=== PATIENT | male | born 1980 | race Caucasian/White ===

== ENCOUNTER 2016-07-22 12:42 | Emergency (ER) | payer BC, OTHER ==
[2016-07-22] MEDS ORDERED: Ondansetron INJ* 2 MG/ML VIAL IV ONE (13:18)
[2016-07-22] MEDS ORDERED: Clindamycin 600 MG IVPREMIX(* 600 MG/50 ML SDV IV ONE (13:21)
--- NOTE | 2016-07-22 13:44 | RAD ---
INDICATION: Cough, burning, history of vomiting. COMPARISON: There are no prior studies available for comparison. TECHNIQUE: Dual-energy PA and lateral views of the chest were obtained. FINDINGS: The heart is within normal limits in size. Mediastinal and hilar contours appear within normal limits. The lungs are clear. No pleural effusion is present. IMPRESSION: NO EVIDENCE FOR ACTIVE CARDIOPULMONARY DISEASE.
[2016-07-22 13:54] LABS: Hematocrit 49 % (42-52); Hemoglobin 16.1 g/dl (14.0-18.0); Mean Corpuscular HGB Conc 33 g/dl (31-36); Mean Corpuscular Hemoglobin 30 pg (27-31); Mean Corpuscular Volume 90 fL (80-94); Mean Platelet Volume 9 um3 (7.4-10.4); Red Blood Count 5.43 10^6/ul (4.0-5.4); Red Cell Distribution Width 13 % (10.5-15); White Blood Count 10.2 10^3/ul (3.5-10.8)
[2016-07-22] MEDS: NS 0.9% 1000 ML* 2,000 ML IV ONE (13:57)
[2016-07-22 14:09] LABS: ALT 19 U/L (7-52); AST 22 U/L (13-39); Albumin 4.8 g/dL (3.2-5.2); Alkaline Phosphatase 87 U/L (34-104); Anion Gap 9 mmol/L (2-11); BUN/Creatinine Ratio 21.1 (8-20); Blood Urea Nitrogen 16 mg/dL (6-24); C Reactive Protein 17.43 mg/L (< 5.00); CO2 Carbon Dioxide 28 mmol/L (22-32); Calcium 9.7 mg/dL (8.6-10.3); Chloride 100 mmol/L (101-111); EGFR African American 148.4 (>60); EGFR Non-African American 115.4 (>60); Globulin 2.8 g/dL (2-4); Glucose 123 mg/dL (70-100); Lipase < 10 U/L (11.0-82.0); Magnesium 2.1 mg/dL (1.9-2.7); Potassium 3.6 mmol/L (3.5-5.0); Sodium 137 mmol/L (133-145); Total Protein 7.6 g/dL (6.4-8.9)
[2016-07-22] MEDS ORDERED: Iodixanol* (CONTRAST) 320 MG/ML 100 ML SDV IV ONE (14:27)
--- NOTE | 2016-07-22 15:03 | RAD ---
INDICATION: Throat pain. COMPARISON: There are no prior studies available for comparison. TECHNIQUE: A CT scan of the neck was performed with intravenous contrast following intravenous injection of 50 ml of Visipaque 320 nonionic contrast. Contiguous axial sections were obtained from the skull base through the lung apices. Images were reconstructed in the coronal and sagittal planes. FINDINGS: The airway is patent. The epiglottis appears to be within normal limits. No retropharyngeal soft tissue swelling is noted. No significant enlarged nodes are seen. The parotid and submandibular glands appear to be within normal limits. The thyroid gland appears normal. The lung apices appear clear. There is mild mucosal thickening within the ethmoid and maxillary sinuses. The remaining sinuses and mastoid air cells appear clear. No significant focal osseous abnormality is seen. There is moderate degenerative disc disease at the C5-C6 level. IMPRESSION: NO EVIDENCE FOR ACUTE FINDING, IF THE PATIENT'S SYMPTOMS PERSIST CONSIDER DIRECT INSPECTION FOR FURTHER EVALUATION.
[2016-07-22 15:05] VITALS: BP 139/88
[2016-07-22] MEDS ORDERED: Al Hydrox/Mg Hydrox/Simet LIQ* 30 ML UDC PO ONE (16:06)
[2016-07-22] MEDS ORDERED: Lidocaine 2% VISCOUS* 15 ML UDC PO ONE (16:06)
[2016-07-22] MEDS ORDERED: Ondansetron ODT TAB* 4 MG PO ONE (17:15)
--- NOTE | 2016-07-22 17:15 | ED ---
IJeff,Lola, scribed for Leandro Cruz MD on 07/22/16 at 1325 . GI/ HPI - HPI Summary HPI Summary: This 35 y/o male presents to ED for persistent n/v since 3-4 days ago. PMHx is significant for DM with insulin pump use, and pt was admitted to [facility] 2 days and discharged a day ago. Pt suspects that he was in DKA during his stay. No CT done at [facility]. BG was in 90 this morning. He reports persistent throat discomfort that radiates down to esophagus, chest pain "as if on fire", diffuse abd pain, and post nasal discomfort. Pt states that throat is tender to touch and felt as if swollen. Pt also he used to have a bad tooth and had abx tx that he did not complete. Fluid intake makes the abd discomfort and nausea worse. Plan of care involving CT scan of throat is discussed with pt and present at bedside. It is discussed that abd CT is not clinically recommended, and pt is agreeable. - History of Current Complaint Chief Complaint: EDNauseaVomitDiarrh Time Seen by Provider: 07/22/16 13:07 Stated Complaint: VOMITING, INFECTION , Hx Obtained From: Patient, Family/[employer] - present at bedside Onset/Duration: Started Days Ago, Atraumatic, Still Present Timing: Constant Pain Intensity: 6 Location of Pain: Diffuse Pain Characteristics: Dull Pain Radiates to: Chest Associated Signs and Symptoms: Positive: Nausea, Vomiting. Negative: Diarrhea, Fever Aggravating Factor(s): Food, Liquids Alleviating Factor(s): Nothing - Allergy/Home Medications Allergies/Adverse Reactions: Allergies Allergy/AdvReac Type Severity Reaction Status Date / Time No Known Allergies Allergy Verified 12/01/14 18:52 PMH/Surg Hx/FS Hx/Imm Hx Endocrine/Hematology History: Reports: Hx Diabetes Infectious Disease History: No Infectious Disease History: Denies: Traveled Outside the [place] in Last 30 Days - Family History Known Family History: Positive: Diabetes - biological father, Other - Positive EtOH dependence to biological father - Social History Alcohol Use: None Substance Use Type: Reports: None Smoking Status (MU): Former Smoker Review of Systems Negative: Fever Positive: Sore Throat Positive: Chest Pain Positive: Abdominal Pain, Vomiting, Nausea. Negative: Diarrhea Negative: Anxious, Depressed All Other Systems Reviewed And Are Negative: Yes Physical Exam Triage Information Reviewed: Yes Vital Signs On Initial Exam: Initial Vitals Temp Pulse Resp BP Pulse Ox 98.5 F 63 14 134/79 100 07/22/16 12:44 07/22/16 12:44 07/22/16 12:44 07/22/16 12:44 07/22/16 12:44 Vital Signs Reviewed: Yes Appearance: Positive: Ill-Appearing - mildly ill appearing Skin: Positive: Warm, Skin Color Reflects Adequate Perfusion Eyes: Positive: EOMI, JULIO ENT: Positive: Pharyngeal erythema - posterior pharynx erythematous, Other - throat is patent without any visible sign of abscess. Neck: Positive: Supple, Nontender, Enlarged Nodes @ - anterior cervical adenopathy Respiratory/Lung Sounds: Positive: Clear to Auscultation, Breath Sounds Present Cardiovascular: Positive: RRR, Pulses are Symmetrical in both Upper and Lower Extremities. Negative: Tachycardia Abdomen Description: Positive: Other: - diffuse abd tenderness Musculoskeletal: Positive: Strength/ROM Intact Neurological: Positive: Sensory/Motor Intact, Alert, Oriented to Person Place, Time Psychiatric: Positive: Affect/Mood Appropriate AVPU Assessment: Alert Diagnostics - Vital Signs Vital Signs Temp Pulse Resp BP Pulse Ox 07/22/16 12:44 98.5 F 63 14 134/79 100 - Laboratory Lab Results: Lab Results 07/22/16 07/22/16 07/22/16 Range/Units 13:40 13:40 13:40 WBC 10.2 (3.5-10.8) 10^3/ul RBC 5.43 H (4.0-5.4) 10^6/ul Hgb 16.1 (14.0-18.0) g/dl Hct 49 (42-52) % MCV 90 (80-94) fL MCH 30 (27-31) pg MCHC 33 (31-36) g/dl RDW 13 (10.5-15) % Plt Count 147 L (150-450) 10^3/ul MPV 9 (7.4-10.4) um3 Neut % (Auto) 79.9 (38-83) % Lymph % (Auto) 9.7 L (25-47) % Yates % (Auto) 10.0 H (1-9) % Eos % (Auto) 0.2 (0-6) % Baso % (Auto) 0.2 (0-2) % Absolute Neuts (auto) 8.1 H (1.5-7.7) 10^3/ul Absolute Lymphs (auto) 1.0 (1.0-4.8) 10^3/ul Absolute Monos (auto) 1.0 H (0-0.8) 10^3/ul Absolute Eos (auto) 0 (0-0.6) 10^3/ul Absolute Basos (auto) 0 (0-0.2) 10^3/ul Absolute Nucleated RBC 0 10^3/ul Nucleated RBC % 0 INR (Anticoag Therapy) 0.92 (0.89-1.11) Sodium 137 (133-145) mmol/L Potassium 3.6 (3.5-5.0) mmol/L Chloride 100 L (101-111) mmol/L Carbon Dioxide 28 (22-32) mmol/L Anion Gap 9 (2-11) mmol/L BUN 16 (6-24) mg/dL Creatinine 0.76 (0.67-1.17) mg/dL Est GFR ( Amer) 148.4 (>60) Est GFR (Non-Af Amer) 115.4 (>60) BUN/Creatinine Ratio 21.1 H (8-20) Glucose 123 H (70-100) mg/dL Lactic Acid (0.5-2.0) mmol/L Calcium 9.7 (8.6-10.3) mg/dL Magnesium 2.1 (1.9-2.7) mg/dL Total Bilirubin 1.50 H (0.2-1.0) mg/dL AST 22 (13-39) U/L ALT 19 (7-52) U/L Alkaline Phosphatase 87 (34-104) U/L Troponin I 0.00 (<0.04) ng/mL C-Reactive Protein 17.43 H (< 5.00) mg/L Total Protein 7.6 (6.4-8.9) g/dL Albumin 4.8 (3.2-5.2) g/dL Globulin 2.8 (2-4) g/dL Albumin/Globulin Ratio 1.7 (1-3) Lipase < 10 L (11.0-82.0) U/L Influenza A (Rapid) (Negative) Influenza B (Rapid) (Negative) Group A Strep Rapid (Negative) 07/22/16 07/22/16 07/22/16 Range/Units 13:40 13:55 16:27 WBC (3.5-10.8) 10^3/ul RBC (4.0-5.4) 10^6/ul Hgb (14.0-18.0) g/dl Hct (42-52) % MCV (80-94) fL MCH (27-31) pg MCHC (31-36) g/dl RDW (10.5-15) % Plt Count (150-450) 10^3/ul MPV (7.4-10.4) um3 Neut % (Auto) (38-83) % Lymph % (Auto) (25-47) % Yates % (Auto) (1-9) % Eos % (Auto) (0-6) % Baso % (Auto) (0-2) % Absolute Neuts (auto) (1.5-7.7) 10^3/ul Absolute Lymphs (auto) (1.0-4.8) 10^3/ul Absolute Monos (auto) (0-0.8) 10^3/ul Absolute Eos (auto) (0-0.6) 10^3/ul Absolute Basos (auto) (0-0.2) 10^3/ul Absolute Nucleated RBC 10^3/ul Nucleated RBC % INR (Anticoag Therapy) (0.89-1.11) Sodium (133-145) mmol/L Potassium (3.5-5.0) mmol/L Chloride (101-111) mmol/L Carbon Dioxide (22-32) mmol/L Anion Gap (2-11) mmol/L BUN (6-24) mg/dL Creatinine (0.67-1.17) mg/dL Est GFR ( Amer) (>60) Est GFR (Non-Af Amer) (>60) BUN/Creatinine Ratio (8-20) Glucose (70-100) mg/dL Lactic Acid 0.9 (0.5-2.0) mmol/L Calcium (8.6-10.3) mg/dL Magnesium (1.9-2.7) mg/dL Total Bilirubin (0.2-1.0) mg/dL AST (13-39) U/L ALT (7-52) U/L Alkaline Phosphatase (34-104) U/L Troponin I (<0.04) ng/mL C-Reactive Protein (< 5.00) mg/L Total Protein (6.4-8.9) g/dL Albumin (3.2-5.2) g/dL Globulin (2-4) g/dL Albumin/Globulin Ratio (1-3) Lipase (11.0-82.0) U/L Influenza A (Rapid) Negative (Negative) Influenza B (Rapid) Negative (Negative) Group A Strep Rapid Negative (Negative) Result Diagrams: 07/22/16 13:40 07/22/16 13:40 Lab Statement: Any lab studies that have been ordered have been reviewed, and results considered in the medical decision making process. - CT Neck CT Interpretation: No Acute Changes - NO EVIDENCE FOR ACUTE FINDING, IF THE PATIENT'S SYMPTOMS PERSIST CONSIDER DIRECT INSPECTION FOR FURTHER EVALUATION. CT Interpretation Completed By: Radiologist - EKG 1427 Cardiac Rate: NL - 53 bpm EKG Rhythm: Sinus Rhythm Ectopy: None EKG Interpretation: Early repol GIGU Course/Dx - Course Course Of Treatment: NO CRITICAL CARE TIME Assessment/Plan: IMPROVED IN ED. TOLERATED PO IN ED. DISCHARGE HOME STABLE. - Diagnoses Provider Diagnoses: Vomiting, Dehydration, Pharyngitis Discharge - Discharge Plan Condition: Stable Disposition: HOME Prescriptions: Clindamycin Cap(NF) [Cleocin 300 mg Cap(NF)] 300 mg PO Q6H #40 cap Ondansetron ODT TAB* [Zofran 4 MG Odt TAB*] 4 mg PO Q6H PRN #10 tab.odt PRN Reason: Nausea Patient Education Materials: Acute Nausea and Vomiting (ED), Dehydration (ED), Pharyngitis (ED) Referrals: Non Staff,Doctor [Primary Care Provider] - [facility] [place] [Outside] Additional Instructions: FOLLOW UP WITH YOUR DOCTOR. RETURN TO THE EMERGENCY DEPARTMENT FOR ANY WORSENING OF YOUR CONDITION OR QUESTIONS OR CONCERNS. The documentation as recorded by the Jeff lange Soohyun accurately reflects the service I personally performed and the decisions made by me, Leandro Cruz MD.
== END 2016-07-22 17:29 | disposition home or self-care (01) ==
LOC: ED 12:42
DX: E86.0 Dehydration (principal); J02.9 Acute pharyngitis, unspecified; R11.2 Nausea with vomiting, unspecified; R07.9 Chest pain, unspecified; R10.9 Unspecified abdominal pain; Z87.891 Personal history of nicotine dependence
CPT/HCPCS: 36415; 70491; 71020; 80053; 83605; 83690; 83735; 84484; 85025; 85610; 86140; 87040; 87502; 87651; 93005; 96361; 96374; 99283; A9270-GY; J2405; Q9967

== ENCOUNTER 2016-12-08 19:56 | Emergency (ER) | payer BC ==
[2016-12-08 20:25] LABS: Hematocrit 44 % (42-52); Hemoglobin 14.6 g/dl (14.0-18.0); Mean Corpuscular HGB Conc 33 g/dl (31-36); Mean Corpuscular Hemoglobin 31 pg (27-31); Mean Corpuscular Volume 92 fL (80-94); Mean Platelet Volume 10 um3 (7.4-10.4); Red Blood Count 4.79 10^6/ul (4.0-5.4); Red Cell Distribution Width 13 % (10.5-15)
[2016-12-08 20:41] LABS: ALT 23 U/L (7-52); AST 28 U/L (13-39); Albumin 4.5 g/dL (3.2-5.2); Alkaline Phosphatase 80 U/L (34-104); Anion Gap 6 mmol/L (2-11); BUN/Creatinine Ratio 14.3 (8-20); Blood Urea Nitrogen 11 mg/dL (6-24); C Reactive Protein < 1.00 mg/L (< 5.00); CO2 Carbon Dioxide 26 mmol/L (22-32); Calcium 9.4 mg/dL (8.6-10.3); Chloride 106 mmol/L (101-111); Creatine Kinase 131 U/L (10-223); EGFR African American 145.4 (>60); EGFR Non-African American 113.1 (>60); Globulin 2.4 g/dL (2-4); Glucose 250 mg/dL (70-100); Potassium 3.6 mmol/L (3.5-5.0); Sodium 138 mmol/L (133-145); Total Protein 6.9 g/dL (6.4-8.9)
--- NOTE | 2016-12-08 21:13 | RAD ---
HISTORY: Confusion, head trauma COMPARISONS: None TECHNIQUE: Multiple contiguous axial CT scans were obtained of the head without intravenous contrast. FINDINGS: HEMORRHAGE/INFARCT: There is no hemorrhage or acute infarct. MASSES/SHIFT: There is no mass or shift. EXTRA-AXIAL SPACES: There are no extra-axial fluid collections. SULCI AND VENTRICLES: The sulci and ventricles are normal in size and position for the patient's stated age. CEREBRUM: There are no focal parenchymal abnormalities. BRAINSTEM: There are no focal parenchymal abnormalities. CEREBELLUM: There are no focal parenchymal abnormalities. VESSELS: The vessels are grossly normal. PARANASAL SINUSES: The paranasal sinuses are clear. ORBITS: The orbits are unremarkable. BONES AND SOFT TISSUE: There are fractures of the left orbit and left nasal bones and left maxilla further described on the incoming CT of the face OTHER: None IMPRESSION: LEFT FACIAL FRACTURES. NO ACUTE INTRACRANIAL PATHOLOGY.
--- NOTE | 2016-12-08 21:16 | RAD ---
HISTORY: Facial trauma COMPARISONS: Head CT dated December 08, 2016 TECHNIQUE: Multiple contiguous axial CT scans were obtained of the face without intravenous contrast, with coronal and sagittal multiplanar reformations. FINDINGS: BONES: There are nondisplaced fractures of the nasal bones bilaterally. There is a left facial tripod fracture, fracture of the lateral wall of the maxilla, inferior wall of the left orbit, the anterior wall of the maxilla and at the zygomaticofrontal articulation. There is inferior displacement of the inferior orbital wall fracture. There is carious disease with periapical lucencies of the left mandibular premolars. ORBITS: The globes are round. The optic nerves are symmetric. The extraocular musculature is normal. There is no post septal or intraconal inflammatory change. There is no retrobulbar hematoma. PARANASAL SINUSES: There is an air-fluid level within the left maxillary sinus. There is mucosal thickening of the ethmoid air cells and the sphenoid sinus. BRAIN AND SOFT TISSUE: There is left preorbital soft tissue swelling. OTHER: None. IMPRESSION: 1. LEFT FACIAL TRIPOD FRACTURE, WITH INFERIOR DISPLACEMENT OF THE INFERIOR ORBITAL WALL FRACTURE. 2. BILATERAL NONDISPLACED NASAL BONE FRACTURES.
[2016-12-08] MEDS ORDERED: Ketorolac INJ* 30 MG/ML 1 ML VIAL IV ONE (22:07)
--- NOTE | 2016-12-08 22:16 | ED ---
Cathy Ni Thomas, scribed for Art Maurice MD on 12/08/16 at 2046 . Syncope/Near Syncope - HPI Summary HPI Summary: The pt is a 36 y/o M BIBA s/p syncopal episode today at around 20:00. Per EMS, he was at [facility] with his family and went outside to the parking lot to access his car. Shortly after this, he was found disoriented and crawling on the ground of the parking lot with an abrasion to his L lateral orbit. He denies any memory of what happened, and he states there was LOC. The mechanism of the syncope and L eye abrasion are unknown. Pt additionally c/o L eye pain, diaphoresis, bradycardia (HR in the low 40s in the ambulance), and facial pain. Pt denies neck pain. PMHx: neuropathy, IDDM. PSHx: hernia repair. SHx: former smoker, no alcohol use. Per family, he does not have a cardiac history. Prior to the syncopal episode he recently ate. He also recently started using a new insulin pump. - History Of Current Complaint Chief Complaint: EDSyncope Time Seen by Provider: 12/08/16 20:09 Hx Obtained From: Patient, Family/[employer] - , son present Onset/Duration: Sudden Onset, Lasting Hours - today about 20:00, Resolved Context: Unwitnessed Activity At Onset: Unknown Aggravating Factor(s): Nothing Alleviating Factor(s): Nothing Associated Signs And Symptoms: Other - POS: disorientation, laceration to left lateral orbit, syncope with LOC, L eye pain, bradycardia (in low 40s in ambulance), facial pain; NEG: neck pain - Allergies/Home Medications Allergies/Adverse Reactions: Allergies Allergy/AdvReac Type Severity Reaction Status Date / Time No Known Allergies Allergy Verified 12/08/16 20:04 PMH/Surg Hx/FS Hx/Imm Hx Previously Healthy: No Endocrine/Hematology History: Reports: Hx Diabetes - IDDM Neurological History: Reports: Other Neuro Impairments/Disorders - Hx neuropathy - Surgical History Surgery Procedure, Year, and Place: hernia repair Infectious Disease History: No Infectious Disease History: Denies: Traveled Outside the [place] in Last 30 Days - Family History Known Family History: Negative: Diabetes - Social History Alcohol Use: None Hx Tobacco Use: Yes Smoking Status (MU): Former Smoker Review of Systems Positive: Skin Diaphoresis. Negative: Fever ENT: Other - POS: L orbit pain Positive: Other - POS: bradycardia (in the 40s in the ambulance) Positive: Other - POS: facial pain; NEG: neck pain Positive: Other - POS: abrasion to L lateral orbit Neurological: Other - POS: disorientation Positive: Syncope - with LOC All Other Systems Reviewed And Are Negative: Yes Physical Exam Triage Information Reviewed: Yes Vital Signs On Initial Exam: Initial Vitals Temp Pulse Resp BP Pulse Ox 97.2 F 40 18 130/85 99 12/08/16 20:01 12/08/16 20:01 12/08/16 20:01 12/08/16 20:01 12/08/16 20:01 Vital Signs Reviewed: Yes Appearance: Positive: Well-Appearing, Well-Nourished, Pain Distress Skin: Positive: Warm, Skin Color Reflects Adequate Perfusion, Dry Head/Face: Positive: Normal Head/Face Inspection Eyes: Positive: Normal, Other: - Pupils are equal and round, 2-3 mm. He prefers to keep them closed and opens them to voice. ENT: Positive: Normal ENT inspection Neck: Positive: Supple, Nontender Respiratory/Lung Sounds: Positive: Clear to Auscultation, Breath Sounds Present Cardiovascular: Positive: Bradycardia, Other - Regular rate Abdomen Description: Positive: Nontender, Soft Bowel Sounds: Positive: Present Musculoskeletal: Positive: Normal Neurological: Positive: Normal Psychiatric: Positive: Normal, Affect/Mood Appropriate Diagnostics - Vital Signs Vital Signs Temp Pulse Resp BP Pulse Ox 12/08/16 20:22 38 15 100 12/08/16 20:20 121/80 12/08/16 20:01 97.2 F 40 18 130/85 99 - Laboratory Lab Results: Lab Results 12/08/16 12/08/16 Range/Units 20:00 20:00 WBC 7.0 (3.5-10.8) 10^3/ul RBC 4.79 (4.0-5.4) 10^6/ul Hgb 14.6 (14.0-18.0) g/dl Hct 44 (42-52) % MCV 92 (80-94) fL MCH 31 (27-31) pg MCHC 33 (31-36) g/dl RDW 13 (10.5-15) % Plt Count 168 (150-450) 10^3/ul MPV 10 (7.4-10.4) um3 Neut % (Auto) 54.3 (38-83) % Lymph % (Auto) 33.5 (25-47) % [place] % (Auto) 7.9 (1-9) % Eos % (Auto) 3.3 (0-6) % Baso % (Auto) 1.0 (0-2) % Absolute Neuts (auto) 3.8 (1.5-7.7) 10^3/ul Absolute Lymphs (auto) 2.4 (1.0-4.8) 10^3/ul Absolute Monos (auto) 0.6 (0-0.8) 10^3/ul Absolute Eos (auto) 0.2 (0-0.6) 10^3/ul Absolute Basos (auto) 0.1 (0-0.2) 10^3/ul Absolute Nucleated RBC 0 10^3/ul Nucleated RBC % 0 Sodium 138 (133-145) mmol/L Potassium 3.6 (3.5-5.0) mmol/L Chloride 106 (101-111) mmol/L Carbon Dioxide 26 (22-32) mmol/L Anion Gap 6 (2-11) mmol/L BUN 11 (6-24) mg/dL Creatinine 0.77 (0.67-1.17) mg/dL Est GFR ( Amer) 145.4 (>60) Est GFR (Non-Af Amer) 113.1 (>60) BUN/Creatinine Ratio 14.3 (8-20) Glucose 250 H (70-100) mg/dL Calcium 9.4 (8.6-10.3) mg/dL Total Bilirubin 0.60 (0.2-1.0) mg/dL AST 28 (13-39) U/L ALT 23 (7-52) U/L Alkaline Phosphatase 80 (34-104) U/L Total Creatine Kinase 131 (10-223) U/L Troponin I 0.00 (<0.04) ng/mL C-Reactive Protein < 1.00 (< 5.00) mg/L Total Protein 6.9 (6.4-8.9) g/dL Albumin 4.5 (3.2-5.2) g/dL Globulin 2.4 (2-4) g/dL Albumin/Globulin Ratio 1.9 (1-3) Result Diagrams: 12/08/16 20:00 12/08/16 20:00 Lab Statement: Any lab studies that have been ordered have been reviewed, and results considered in the medical decision making process. - CT CT Brain CT Interpretation: Positive (See Comments) - LEFT FACIAL FRACTURES. NO ACUTE INTRACRANIAL PATHOLOGY. CT Interpretation Completed By: Radiologist CT Maxillofacial CT Interpretation: Positive (See Comments) - 1. LEFT FACIAL TRIPOD FRACTURE, WITH INFERIOR DISPLACEMENT OF THE INFERIOR ORBITAL WALL FRACTURE. 2. BILATERAL NONDISPLACED NASAL BONE FRACTURES. CT Interpretation Completed By: Radiologist Course/Dx Course Of Treatment: Mr. Doe was found crawling in the parking lot of the fast food restaurant that he had been eating at with obvious facial trauma. He has no memory of what happened but sustained a significant facial fracture. He has been accepted at [facility] to W/U possible syncope as well as for definitive care of his facial fracture. - Diagnoses Provider Diagnoses: Orbital floor (blow-out) closed fracture, Syncope - Physician Notifications Discussed Care of Patient With: Dr. Carias Time Discussed With Above Provider: 22:05 Instructed by Provider To: Other - I consulted with [facility]. They accept the patient for transfer. Reason For Transfer: Specialty or service not available at [facility] [place] - Critical Care Time Critical Care Time: 30-74 min Discharge - Discharge Plan Condition: Fair Disposition: OTHER Discharge Disposition Comment: Transferred to [facility] for higher level of care. Referrals: Non Staff,Doctor [Primary Care Provider] - The documentation as recorded by the Cathy lange Thomas accurately reflects the service I personally performed and the decisions made by me, Art Maurice MD.
[2016-12-08 22:50] LABS: Alcohol < 10 mg/dL (<10)
[2016-12-08 23:14] VITALS: BP 108/67
--- NOTE | 2016-12-09 07:22 | RAD ---
INDICATION: Fall. Neck pain. COMPARISON: None TECHNIQUE: Noncontrast axial source images was performed from the skull base to the thoracic inlet. Coronal and and sagittal reformatted images were generated. FINDINGS: Vertebrae: There is no fracture or acute focal bony lesion. There is moderate narrowing about C5-C6 with endplate sclerosis and uncinate process spurring. There is posterior spondylitic ridge formation resulting a mild decrease in AP diameter canal. Alignment: The craniocervical junction appears normal. There is mild focal kyphosis at C5-C6. Alignment is otherwise normal. Central Canal: There are no other significant CT abnormalities of the central canal or foramina. MR imaging is a more sensitive method to evaluate the canal and foramina. Intervertebral disc spaces: The remaining disc spaces are maintained. Brain: The visualized brain appears unremarkable. Soft tissues: The visualized soft tissue elements of the neck are unremarkable. The prevertebral soft tissues appear normal. The lung apices are clear. Other: there are facial bone fractures described in a separate report. IMPRESSION: MODERATE CHRONIC APPEARING DEGENERATIVE CHANGES AT C5-C6. NO ADDITIONAL ACUTE CERVICAL SPINE FINDINGS.
== END 2016-12-08 23:17 ==
LOC: EDBD → MERGE 19:56 → ED 19:56
DX: S02.32XA Fracture of orbital floor, left side, initial encounter for closed fracture (principal); R55 Syncope and collapse; E11.9 Type 2 diabetes mellitus without complications; X58.XXXA Exposure to other specified factors, initial encounter; Y93.9 Activity, unspecified; Y92.9 Unspecified place or not applicable
CPT/HCPCS: 36415; 70450; 70486; 72125; 80053; 80320; 82550; 83735; 84443; 84484; 85025; 85379; 86140; 93005; 99285; G0480; J1885

== ENCOUNTER 2018-01-07 04:11 | Observation (INO) | payer BC ==
[2018-01-07] MEDS ORDERED: NS 0.9% 1000 ML* 1,000 ML IV ONE ×5 (05:07→19:27)
[2018-01-07] MEDS ORDERED: Metoclopramide IV* 5 MG/ML 2 ML VIAL IV ONE (05:07)
[2018-01-07] MEDS ORDERED: diPHENhydraMINE IV* 50 MG/ML 1 ml VIAL (BENADRYL) IV ONE ×2 (05:09→06:43)
--- NOTE | 2018-01-07 05:09 | ED ---
HPI Diabetic - HPI Summary HPI Summary: Pt is a 37 y/o male who presents to the ED c/o intermittent N/V for 1 week. He began to have chest/abdomen pain and headache today. Pt denies any diarrhea, fever, or SOB. His last BM was yesterday. Pt is a diabetic and says last night his insulin pump administered 100 units accidentally. Afterwards, he ate an entire pack of oreos, which he is vomiting today. Pt had DKA last year, and is now worried that he has DKA again. 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 Pt smokes a lot of marijuana. He states taking hot showers did not help with his symptoms. PSHx hernia repair. 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 - Onset/Duration: Gradual Onset, Lasting Days - 1 week, Worse Since Timing: Constant Severity Currently: Severe Aggravating: Other - Too much insulin accidentally administered Alleviating: Nothing Associated Signs & Symptoms: Abdominal Pain, Nausea, Vomiting Related History: DM II, Hx of DKA - Allergies/Home Medications Allergies/Adverse Reactions: Allergies Allergy/AdvReac Type Severity Reaction Status Date / Time No Known Allergies Allergy Verified 01/07/18 04:16 PMH/Surg Hx/FS Hx/Imm Hx Endocrine/Hematology History: Reports: Hx Diabetes - IDDM Cardiovascular History: Denies: Hx Hypertension History: Denies: Hx Renal Disease Neurological History: Reports: Other Neuro Impairments/Disorders - Hx neuropathy - Surgical History Surgery Procedure, Year, and Place: hernia repair Infectious Disease History: No Infectious Disease History: Denies: Traveled Outside the [place] in Last 30 Days - Family History Known Family History: Positive: Other - Positive EtOH dependence to biological father Negative: Diabetes - Social History Alcohol Use: None Hx Substance Use: Yes Substance Use Type: Reports: Marijuana Hx Tobacco Use: Yes Smoking Status (MU): Former Smoker Amount Used/How Often: Currently uses e-cigs Review of Systems Negative: Fever Positive: Chest Pain Negative: Shortness Of Breath Positive: Abdominal Pain, Vomiting, Nausea. Negative: Diarrhea Positive: Headache All Other Systems Reviewed And Are Negative: Yes Physical Exam - Summary Physical Exam Summary: Appearance: Well appearing, no pain distress Skin: warm, dry, reflects adequate perfusion Head/face: normal Eyes: EOMI, JULIO ENT: throat clear, mucous membranes moist Neck: supple, non-tender Respiratory: CTA, breath sounds present Cardiovascular: RRR, pulses symmetrical, no LE edema Abdomen: non-tender, soft Bowel Sounds: present Musculoskeletal: normal, strength/ROM intact Neuro: normal, sensory motor intact, A&Ox3 Triage Information Reviewed: Yes Vital Signs On Initial Exam: Initial Vitals Temp Pulse Resp BP Pulse Ox 97.8 F 68 18 131/75 100 01/07/18 04:12 01/07/18 04:12 01/07/18 04:12 01/07/18 04:12 01/07/18 04:12 Vital Signs Reviewed: Yes Diagnostics - Vital Signs Vital Signs Temp Pulse Resp BP Pulse Ox 01/07/18 04:12 97.8 F 68 18 131/75 100 - Laboratory Result Diagrams: 01/07/18 05:38 01/07/18 05:38 Lab Statement: Any lab studies that have been ordered have been reviewed, and results considered in the medical decision making process. - Radiology CXR Xray Interpretation: No Acute Changes - No acute disease. Pending official radiology report. Radiology Interpretation Completed By: ED Physician - EKG 5:23 Cardiac Rate: NL - 81 bpm EKG Rhythm: Sinus Rhythm ST Segment: Normal EKG Interpretation: Nl axis, borderline qt Diabetic Course/Dx - Course Course Of Treatment: Type 1 diabetic with persistent vomiting. History of gastroparesis in the past. Sugars are mildly elevated. Slight anion gap but not acidotic. Pending CT A/P. Signed out to oncoming ER physician. - Diagnoses Provider Diagnoses: Hyperglycemia due to type 1 diabetes mellitus, Gastroparesis due to secondary diabetes - Critical Care Time Critical Care Time: 30-74 min - Critical care time is exclusive of separately billable procedures Discharge - Sign-Out/Discharge Documenting (check all that apply): Sign-Out Patient Signing out patient TO: Piotr Lepe - Discharge Plan Condition: Fair Referrals: [facility] REFERRAL [Outside] - Billing Disposition and Condition Condition: FAIR - Attestation Statements Document Initiated by Scribe: Yes Documenting Scribe: Tara Sena Provider For Whom Scribe is Documenting (Include Credential): Juan A Loco MD Scribe Attestation: Tara Ni, scribed for Juan A Loco MD on 01/07/18 at 0714. Scribe Documentation Reviewed: Yes Provider Attestation: The documentation as recorded by the scribeTara accurately reflects the service I personally performed and the decisions made by me, Juan A Loco MD
[2018-01-07 05:47] LABS: ABS Basophils 0 10^3/ul (0-0.2); ABS Eosinophils 0.1 10^3/ul (0-0.6); ABS Monocytes 1.2 10^3/ul (0-0.8); ABS Neutrophils 15.9 10^3/ul (1.5-7.7); ABS Nucleated RBC 0 10^3/ul; Eosinophil % 0.3 % (0-6); Hematocrit 46 % (42-52); Hemoglobin 15.5 g/dl (14.0-18.0); Lymphocyte % 5.6 % (25-47); Mean Corpuscular HGB Conc 33 g/dl (31-36); Mean Corpuscular Hemoglobin 31 pg (27-31); Mean Corpuscular Volume 91 fL (80-94); Mean Platelet Volume 9.2 um3 (7.4-10.4); Nucleated Red Blood Cells % 0.1; Platelet Count 181 10^3/ul (150-450); Red Blood Count 5.09 10^6/ul (4.00-5.40); Red Cell Distribution Width 13 % (10.5-15); White Blood Count 18.2 10^3/ul (3.5-10.8)
[2018-01-07 05:51] LABS: INR 0.97 (0.77-1.02)
[2018-01-07 05:54] LABS: Urine Appearance Clear; Urine Blood 3+ (Negative); Urine Color Yellow; Urine Ketones 1+ (Negative); Urine Protein 1+(30 mg/dL) (Negative); Urine Red Blood Cell 3+(>10/hpf) (Absent); Urine Specific Gravity 1.024 (1.010-1.030); Urine Urobilinogen Negative (Negative); Urine White Blood Cell Trace(0-5/hpf) (Absent)
[2018-01-07] MEDS ORDERED: Haloperidol INJ IV/IM* 5 MG/ML AMP IV SLOW PU ONE (06:43)
[2018-01-07 06:47] LABS: EGFR Non-African American 80.4 (>60)
[2018-01-07] MEDS ORDERED: Iodixanol* (CONTRAST) 320 MG/ML 100 ML SDV IV ONE (06:52)
--- NOTE | 2018-01-07 07:08 | ED ---
Progress - Progress Note Progress Note: Patient is received as a sign out from Dr. Juan A Loco to Dr. Piotr Lepe at 0700. 0754 evaluation - Patient reports that he is feeling somewhat better. He had previously been experiencing abdominal pain, nausea, and vomiting. Patient is a type 1 diabetic w/ Hx of DKA, last episode reported to have been last year. He reported that his insulin pump administered 100 units accidentally last night, per Dr. Loco's chart. Patient was concerned he has DKA. In the room now, he reports abdominal pain has resolved but notes some occasional, slight nausea is still present. CT abd/pel: no evidence for obstruction or acute findings; fatty infiltration of the liver; this report was reviewed by ED physician. Re-Evaluation - Re-Evaluation First Eval Re-Evaluation Time: 07:54 Change: Improved Comment: Patient reports that he is feeling somewhat better. He had previously been experiencing abdominal pain, nausea, and vomiting. He reports abdominal pain has resolved but notes some occasional, slight nausea is still present. Second Eval Re-Evaluation Time: 08:24 Change: Unchanged Comment: Patient informed of decision to admit to [facility]; patient understands and is agreeable with this plan. Course/Dx - Course Course Of Treatment: Patient was signed out to Dr. Loco. He reports that the patient is a 37-year-old male who came in complaining of abdominal pain started with nausea and vomiting. He is a diabetic type I. He since that the patient have hyperglycemia and gastroparesis however he decided to do an abdominopelvic CT which is pending. At this point the patient is resting comfortable, he says states he is a slightly nauseous but the abdominal pain has resolved. He is hemodynamically stable. Abdominopelvic CT impression: No evidence for obstruction or acute findings. Fatty infiltration of the liver. The patient continues to be slightly nauseous without any vomiting, abdominal pain have subsided. As per recommendation from Dr. Loco, the patient will be admitted to the hospital services for gastroparesis and hyperglycemia. I discussed my physical exam, findings and test results with Dr. Weiner who accepted the patient for admission. Patient continues to be hemodynamically stable alert and oriented 3. - Diagnoses Provider Diagnoses: Hyperglycemia due to type 1 diabetes mellitus, Gastroparesis due to secondary diabetes - Provider Notifications Discussed Care Of Patient With: Alyse Weiner Time Discussed With Above Provider: 08:22 Instructed by Provider To: Other - Patient's case with discussed with Dr. Weiner at 0822. She agrees to accept patient for admission to [facility]. Discharge - Sign-Out/Discharge Documenting (check all that apply): Patient Departure - admit - Discharge Plan Condition: Fair Disposition: ADMITTED TO [facility] Referrals: [facility] [Outside] - Attestation Statements Document Initiated by Scribe: Yes Documenting Scribe: Kane Manriquez Provider For Whom Scribe is Documenting (Include Credential): Piotr Lepe MD Scribe Attestation: IKane, scribed for Piotr Lepe MD on 01/07/18 at 0839.
--- NOTE | 2018-01-07 07:32 | RAD ---
INDICATION: Diabetic with repetitive vomiting. COMPARISON: There are no relevant prior studies available for comparison. TECHNIQUE: A CT scan of the abdomen and pelvis was performed with intravenous and without oral contrast following intravenous injection of 85 ml of Visipaque 320 nonionic contrast. Contiguous axial sections were obtained from the lung bases through the symphysis pubis. Images were reconstructed in the coronal and sagittal planes. FINDINGS: LUNGS: There is mild dependent bilateral lower lobe subsegmental atelectasis. No pleural effusion is seen. LIVER: The liver is normal in size and decreased in attenuation consistent with fatty infiltration. No significant focal abnormality is seen. GALLBLADDER: No calcified gallstones are seen. BILE DUCTS: No intra or extrahepatic ductal distention is seen. SPLEEN: The spleen is normal in size without significant focal abnormality. PANCREAS: The pancreas is normal in size. No ductal distention or calcifications are seen. ADRENAL GLANDS: The adrenal glands are normal in size. KIDNEYS: The kidneys are normal in size. No renal calculi or hydronephrosis is seen. There is a 1.5 cm cyst present in the upper pole of the left kidney. AORTA: The aorta is normal in caliber with mild calcific plaque present. LYMPH NODES: No significantly enlarged lymph nodes are seen. BOWEL: There is limited evaluation of the bowel on this noncontrast enhanced study. The stomach, small and large bowel appear nondistended. The appendix is not well visualized. There is no evidence for inflammatory change in the right lower quadrant. There is a moderate amount retained stool. There is no evidence for diverticulitis or colitis. PELVIC ORGANS: The urinary bladder is nondistended. No focal bladder wall thickening is seen. The prostate gland is mildly enlarged measuring 5.0 cm in transverse dimension. PERITONEUM: No free intraperitoneal air or fluid is seen. BONES: No significant focal osseous abnormality is seen. IMPRESSION: 1. NO EVIDENCE FOR OBSTRUCTION OR ACUTE FINDING. 2. FATTY INFILTRATION OF THE LIVER.
[2018-01-07] MEDS ORDERED: Ondansetron INJ* 2 MG/ML VIAL IV ONE (08:09)
--- NOTE | 2018-01-07 08:36 | RAD ---
INDICATION: Vomiting. COMPARISON: Comparison is made with a prior study from July 22, 2016. TECHNIQUE: A portable view of the chest was obtained. FINDINGS: Cardiac and mediastinal contours appear to be within normal limits. The lungs are clear. No pleural effusion is seen. IMPRESSION: NO EVIDENCE FOR ACUTE DISEASE. R0
[2018-01-07] MEDS ORDERED: Insulin GLARGINE(*) 1 UNITS UNIT SUBCUT ONE ×3 (08:44→18:03)
[2018-01-07] MEDS ORDERED: Dextrose 50% Syringe 50 ML* 25 GM/50 ML SYRINGE IV PUSH PRN (08:45)
[2018-01-07] MEDS ORDERED: Ondansetron INJ* 2 MG/ML VIAL IV PRN (08:46)
[2018-01-07] MEDS ORDERED: Acetaminophen TAB* 325 MG PO PRN (08:52)
[2018-01-07] MEDS ORDERED: Pantoprazole IV* 40 MG IV ONE (10:00)
[2018-01-07] MEDS: Insulin LISPRO* 1 UNITS UNIT SUBCUT SCH ×3 (11:02→21:04)
[2018-01-07] MEDS: NS 0.9% 1000 ML* 1,000 ML IV SCH (12:27)
--- NOTE | 2018-01-07 21:32 | HP ---
CC: [facility] * HISTORY AND PHYSICAL: DATE OF ADMISSION: 01/07/18 PRIMARY CARE PROVIDER: The patient does not remember the name. It is a provider from [place], [place]. CHIEF COMPLAINT: Nausea and vomiting. HISTORY OF PRESENT ILLNESS: Ye Doe is a 37-year-old male with history of diabetes, type 1, who stated that he has had problems with nausea and vomiting for the past 1 week. He stated that he occasionally cycles of nausea and vomiting. He usually uses his insulin pump, but he left it in the car when he was walking over to the emergency department. He stated that he thought that the insulin pump delivered 100 units of insulin to him overnight and he thought it was not working correctly. He denies any fevers. He denies any abdominal pain. He has had no problems with bowel movements. He is going to be placed on overnight observation with diagnoses of nausea, vomiting, dehydration, and uncontrolled diabetes. PAST MEDICAL HISTORY: 1. Diabetes, type 1. 2. History of facial fractures after a fall in 2017. MEDICATIONS: Insulin pump with unknown doses. The patient does not remember his basal insulin dosing, stated that it is set up by his primary care provider. ALLERGIES: No known drug allergies. FAMILY HISTORY: Positive for father, who of complications of diabetes in his 30s. The patient does not get in touch with his mother and does not know her medical history. SOCIAL HISTORY: The patient lives with his , who is his surrogate. He works at [employer]. He used to smoke cigarettes, 2 packs per day, from the age of 6 to 36; he quit 2 years ago. He denies any alcohol use. He smokes marijuana "a lot." REVIEW OF SYSTEMS: Please see history of present illness. The patient denies any shortness of breath. Denies any chest pain. Denies any abdominal pain. His last bowel movement was yesterday and was "normal." The patient has been afebrile. The remaining 12 systems were reviewed with the patient and were otherwise negative. PHYSICAL EXAMINATION GENERAL: This is a very pleasant 37-year-old male who is in no acute distress. Alert, awake, and oriented x3. VITAL SIGNS: Blood pressure 131/75, heart rate of 68 and regular, respiratory rate 18, oxygen saturation 100% on room air, temperature 97.8. HEENT: Head: Atraumatic, normocephalic. Eyes: Pupils are equal, reactive to light and accommodation. Oropharynx clear. Mucosa dry. NECK: Supple. No JVD. No bruits bilaterally. RESPIRATORY: Clear to auscultation bilaterally. CARDIOVASCULAR: Regular rate and rhythm. No murmur. ABDOMEN: Soft, minimally tender in the epigastric region with no rebound, no guarding. Bowel sounds are present in all 4 quadrants. EXTREMITIES: There is no edema. Pulses are +2 bilaterally. There is no clubbing or cyanosis. NEUROLOGIC: Speech clear. Cranial nerves II through XII grossly intact. Motor strength is 5/5 bilaterally. SKIN: On evaluation of the skin, no ecchymotic areas or rashes noted. DIAGNOSTIC STUDIES/LAB DATA: Showed sodium of 139, potassium 5.5, chloride 99 , carbon dioxide 24, anion gap of 16, BUN 24, creatinine 1.03. Liver function tests showed total bilirubin 1.3, AST of 43, ALT of 53, alkaline phosphatase of 132. Lactic acid was 2.6. Lipase below 10. CBC: White blood cell count of 18.2, hemoglobin of 15.5, hematocrit of 46, and platelets of 181. ABG showed pH of 7.37, PCO2 of 39, PO2 of 86, and bicarb of 22.9. Urinalysis showed +1 ketones, +3 blood, specific gravity of 1.024, absent nitrites, esterase, and bacteria. Portable chest x-ray, impression: "No evidence for acute disease." CT of abdomen and pelvis, impression: "No evidence for obstruction or acute findings. Fatty infiltration of the liver." ASSESSMENT AND PLAN: 1. The patient's intractable nausea and vomiting could be due to diabetic ketoacidosis that is resolved. There is no acidosis on the patient's ABG and the bicarb level on basic metabolic panel was within normal limits. He does have mildly elevated anion gap. Lactic acid is mildly elevated. I suspect it is due to dehydration as well as nausea and vomiting. Once again, the differential for nausea and vomiting is either from gastritis or symptoms of diabetic ketoacidosis or problems with marijuana-induced cyclical vomiting syndrome. I did discuss with the patient about the possibility of marijuana inducing his symptoms of nausea and vomiting. He was receptive to the explanation. At this point, the patient is going to be placed on overnight observation. We will place the patient on intravenous hydration. Lactic acid is going to be rechecked. So far, there is no evidence of ongoing infection. 2. The patient's elevation of liver function tests is likely due to dehydration and hypoperfusion. We will check the patient's LFTs in the morning. 3. The patient with uncontrolled diabetes. No diabetic ketoacidosis. The patient is going to be treated with insulin Lantus and insulin sliding scale. I asked for the family to bring his pump as well as insulin cartridge, so we can start it as soon as possible and recheck if it is working correctly. 4. For DVT prophylaxis, the patient is low risk and ambulation is going to be encouraged. The patient's code status is full, his surrogate is his . TIME SPENT: Approximately 72 minutes was spent on admission of this patient, more than half the time was spent [id number] with the patient during the interview and physical exam. [id number]/[facility] #: [id number] MTDD
[2018-01-08] MEDS ORDERED: NS 0.9% 1000 ML* 1,000 ML IV ONE (00:04)
[2018-01-08] MEDS: NS 0.9% 1000 ML* 1,000 ML IV SCH ×3 (01:49→13:03)
--- NOTE | 2018-01-08 03:47 | PN ---
Progress Note - Progress Note Date of Service: 01/08/18 Note: Paged for hypotension throughout the night. Good urine output. Given 2L NS and increased fluids to 200 cc/hr
[2018-01-08 07:08] LABS: ABS Basophils 0 10^3/ul (0-0.2); ABS Eosinophils 0 10^3/ul (0-0.6); ABS Lymphocytes 1.8 10^3/ul (1.0-4.8); ABS Monocytes 0.9 10^3/ul (0-0.8); ABS Neutrophils 9.1 10^3/ul (1.5-7.7); ABS Nucleated RBC 0 10^3/ul; Eosinophil % 0.3 % (0-6); Hematocrit 37 % (42-52); Hemoglobin 12.2 g/dl (14.0-18.0); Lymphocyte % 15.4 % (25-47); Mean Corpuscular HGB Conc 33 g/dl (31-36); Mean Corpuscular Hemoglobin 30 pg (27-31); Mean Corpuscular Volume 92 fL (80-94); Nucleated Red Blood Cells % 0.1; Platelet Count 134 10^3/ul (150-450); Red Blood Count 4.04 10^6/ul (4.00-5.40); Red Cell Distribution Width 13 % (10.5-15)
[2018-01-08 07:26] LABS: EGFR Non-African American 119.6 (>60)
[2018-01-08] MEDS: Insulin LISPRO* 1 UNITS UNIT SUBCUT SCH ×2 (08:14→12:47)
[2018-01-08 15:28] VITALS: BP 108/74
--- NOTE | 2018-01-09 05:54 | DS ---
CC: Dr. Maday Hill, [place], [place].* DISCHARGE SUMMARY: DATE OF ADMISSION: 01/07/18 DATE OF DISCHARGE: 01/08/18 PRIMARY CARE PROVIDER/INSURANCE BROKER: Dr. Maday Hill, Endocrinology, [place], [place]. DISCHARGE DIAGNOSES: 1. Intractable nausea and vomiting. 2. Dehydration due to the above. 3. Uncontrolled diabetes. 4. Mild elevation of liver function test, likely due to hypotension and hypoperfusion that was transient and resolved. SECONDARY DIAGNOSES: 1. History of diabetes of type 1, on insulin pump. MEDICATIONS ON DISCHARGE: Include, 1. Zofran 4 mg on p.r.n. basis. 2. Insulin pump to continue at current settings. LABORATORY DATA ON DAY OF DISCHARGE: On 01/08/18, sodium of 140, potassium 3.8 , chloride 112, carbon dioxide 24, BUN 19, creatinine 0.73. The patient's glucose level on admission was still low, but by the time of his discharge his glucose normalized to the level of 191 after lunch. The patient had his insulin pump working at that time. CBCs, white blood cell count 12.0, hemoglobin 12.2, hematocrit 37, [id number]. Microbiology test showed blood cultures were negative as well as urine cultures that were negative. ABG on admission showed pH of 7.37, pCO2 of 39, pO2 of 89 and bicarb of 22.9. HOSPITALIZATION COURSE: Ye Doe is a 37-year-old male with history of diabetes type 1 who is using an insulin pump who stated that he had intractable nausea and vomiting for 3 to 4 days. He stated that he felt that his pump mistakenly delivered 100 units of insulin at some point and he came into the hospital for evaluation. At that point, he left his insulin pump in his car. When he presented to the emergency department here, he appeared to be very dehydrated. His sugars were in the 300 range. He also had leukocytosis. It was thought that the leukocytosis was reactive. He was placed on overnight observation and cultures were obtained. Cultures are negative by the time of discharge. His leukocytosis started resolving by the time of discharge, confirming that it is likely reactive. The patient received multiple doses of insulin as well as long-acting insulin Lantus when he was not using his insulin pump. He had a brief period of hypoglycemia due to that on the morning on 01/08 which normalized. By the time of discharge, the patient had been on his insulin pump for approximately 3 to 4 hours and his sugars had been above 100. The pump appears to be functioning correctly. The patient stated that he uses "a lot of marijuana." It was questioned with the patient that it is possible that his intractable nausea and vomiting is due to marijuana use. The patient was advised to decrease his marijuana use at this point. The patient is going to be discharged home with recommendation to follow up with his primary care provider/automatic developer Dr. Hill as mentioned above. PHYSICAL EXAMINATION: At the time of discharge, blood pressure 111/73, heart rate 62 and regular, respiratory rate 18, oxygen saturation 99% on room air, temperature 98.2. General: The patient is a very pleasant 37-year-old male who is in no acute distress, alert, awake and oriented x3. HEENT: Head atraumatic, normocephalic. Eyes: Pupils equal, round, and reactive to light and accommodation. Oropharynx clear. Mucosa moist. Neck: Supple. No JVD. No bruits bilaterally. Cardiovascular: Regular rate and rhythm. No murmur. Respiratory: Clear to auscultation bilaterally. Abdomen: Soft, nontender. Bowel sounds present in all 4 quadrants. Extremities: There is no edema. Pulses +2 bilaterally. No clubbing or cyanosis. On neuro evaluation, speech clear, cranial nerves II through XII grossly intact. Motor strength is 5/5 bilaterally. On evaluation of skin, no ecchymotic area of rashes noted. Please note that this is a short summary of the patient's hospitalization. Please refer to further medical records for details. TIME SPENT: Approximately 35 minutes were spent on the patient's discharge. [id number]/[facility] #: [id number] [facility]ITAL[facility]ise[facility]
== END 2018-01-08 15:45 | disposition home or self-care (01) ==
LOC: ED 04:11 → MED 08:46
PROVIDERS: ADMIT Internal Medicine; ATTEND Internal Medicine
DX: R11.2 Nausea with vomiting, unspecified (principal); E10.43 Type 1 diabetes mellitus with diabetic autonomic (poly)neuropathy; K31.84 Gastroparesis; R10.9 Unspecified abdominal pain; Z79.4 Long term (current) use of insulin; Z96.41 Presence of insulin pump (external) (internal); E74.8 Other specified disorders of carbohydrate metabolism; F17.200 Nicotine dependence, unspecified, uncomplicated; Z79.899 Other long term (current) drug therapy
CPT/HCPCS: 36415; 71045; 74177; 80048; 80053; 80076; 80320; 81003; 81015; 82550; 82803; 82947; 83036; 83605; 83690; 83735; 84100; 84484; 85025; 85610; 86140; 87040; 87086; 93005; 96361; 96374; 96375; 99283; G0378; G0480; J1200; J1630; J2405; J2765; Q9967